=== PATIENT | female | born 1985 | race Caucasian/White ===

== ENCOUNTER 2018-11-18 09:34 | Inpatient (IN) ==
[2018-11-18] MEDS ORDERED: Ringers Solution, Lactated 1,000 ML IVC ONE (10:03)
[2018-11-18] MEDS ORDERED: Famotidine 20 MG/2 ML VIAL IVP ONE (10:03)
[2018-11-18] MEDS ORDERED: Oxytocin 20 units/ LR 1000 mL 20 UNIT/1,000 ML BAG IVC ONE (10:03)
[2018-11-18] MEDS ORDERED: Metoclopramide 10 MG/2 ML VIAL IVP ONE (10:03)
[2018-11-18] MEDS ORDERED: Ringers Solution, Lactated 1,000 ML IVC SCH (10:15)
[2018-11-18] MEDS ORDERED: Oxytocin 20 units/ LR 1000 mL 20 UNIT/1,000 ML BAG IVC SCH ×3 (10:15→18:23)
[2018-11-18 10:46] LABS: Basophils % 0.3 %; Eosinophils % 0.2 %; Hematocrit 42.2 % (35.3-44.9); Hemoglobin 14.5 g/dL (11.5-15.4); Immature Granulocytes % 0.5 % (0-4); Lymphocytes # 1.1 K/mcL (0.6-4.6); Lymphocytes % 16.5 %; Mean Corpuscular HGB Conc 34.4 g/dL (31.6-35.5); Mean Corpuscular Hemoglobin 30.2 pg (28.0-33.3); Mean Corpuscular Volume 87.9 fL (83.0-100.0); Mean Platelet Volume 10.8 fL (9.4-12.4); Monocytes # 0.4 K/mcL (0.0-1.3); Monocytes % 6.5 %; Platelet Count 224 K/mcL (140-400); Red Cell Distribution Width 13.2 % (11.5-14.5)
[2018-11-18 11:00] LABS: Amphetamine Screen,Urine Negative ng/mL (Cutoff=1000); Barbiturate Screen,Urine Negative ng/mL (Cutoff=200); Benzodiazepines Screen,Urine Negative ng/mL (Cutoff=200); Cannabinoid Screen,Urine Negative ng/mL (Cutoff = 50); Cocaine Screen,Urine Negative ng/mL (Cutoff= 300); Opiate Screen,Urine Negative ng/mL (Cutoff=300); Phencyclidine Screen,Urine Negative ng/mL (Cutoff=25)
[2018-11-18] MEDS ORDERED: cefOXitin 2,000 MG in Water for inj. (sterile) 20 ML 20 ML IVP ONE (11:16)
--- NOTE | 2018-11-18 12:01 | Anesthesia Evaluation PreOp ---
Date of Encounter: 11/18/18 Time of Encounter: 11:59 - Past History Planned Operation: Repeat C/S & BPS Cardiac History: Denies any Significant Hx Pulmonary History: Denies Any Significant HX INSPECTOR TESTER SORTER History: Denies Any Significant HX Anesthesia History: No Prior Anesthetic Complications, Past Anesthesia (C- section x 2, D&C) : Yes (39.2 weeks) Alcohol Use: none Drug use: none Medications and Allergies Tablet 11/18/18 [History] Allergy/AdvReac Type Severity Reaction Status Date / Time No Known Allergies Allergy Verified 03/15/16 13:24 - Meds/Allergy Pre-op Review Medications Reviewed: Yes Allergies Reviewed: Yes Beta Blockers on Current Med List: No Anesthesia Results - Labs 11/18/18 10:20 Anesthesia Exam Intake and Output 11/17/18 11/18/18 11/18/18 23:59 07:59 15:59 Other: Weight 70.5 kg Patient Weight 11/18/18 23:59 Weight 70.5 kg Vital Signs Time 1214 BP 125/83 Pulse 75 Resp 16 O2 Sat Height: 5'4" Weight: 155# BMI = 70.5kG NPO (# of Hours): MNOc - HEENT Pupil (Motor): Pupils equal, EOMI Mallampati: II Teeth: Normal, Poor dentition Oral Opening: Greater than 3 - INSPECTOR TESTER SORTER LOC: Oriented INSPECTOR TESTER SORTER Motor: Normal RUE, Normal LUE, Normal RLE, Normal LLE, Normal Face INSPECTOR TESTER SORTER Sensory: Normal: RUE, LUE, RLE, LLE, Face - Cardiac Rhythm: Regular Murmur: None - Pulmonary Breath Sounds: bilateral Clear Respiratory Effort: Symmetrical Anesthesia Assess/Plan ASA Score: 2 Level of consciousness: Cooperative, Oriented, Tranquil Anesthetic Plan: Regional Nerve Block Monitoring Plan: Standard Monitors Recovery Plan: PACU Anes Supervising Prov Stmt: Pt seen/evaluated, R&B discussed, questions answered and consent obtained. Leela Rodriguez MD
[2018-11-18] MEDS ORDERED: Scopolamine Patch 1.5 MG PATCH.TD72 TD ONE (12:04)
[2018-11-18] MEDS ORDERED: Ondansetron 4 MG/2 ML VIAL IVP PRN ×2 (12:06→18:23)
[2018-11-18] MEDS ORDERED: Naloxone 0.4 MG/ML INJ IVP PRN (12:06)
[2018-11-18] MEDS ORDERED: *HR* Morphine 2 MG/ML SYRINGE IVP PRN (12:06)
[2018-11-18] MEDS ORDERED: *HR* OxyCODONE/APAP 5/325 TABLET PO PRN ×2 (12:06→18:23)
[2018-11-18] MEDS ORDERED: *HR* HYDROmorphone (PF) 1 MG/ML SYRINGE IVP PRN (12:06)
[2018-11-18] MEDS ORDERED: Ibuprofen 400 MG TABLET PO PRN (12:06)
--- NOTE | 2018-11-18 12:07 | History & Physical Report ---
Date of Encounter: 11/18/18 Time of Encounter: 12:05 24 Hour HP Update - Instructions Instructions: If the History and Physical is less than 30 days old and was completed prior to A.M. admission and or procedure and has NOT been updated on calendar day of procedure please complete this update prior to performing procedure. - Update Patient reports changes in Medical Condition: No Changes in examination, assessment, or condition: No Changes in Medication: No Preop tests/diagnostics Reviewed: Yes Surgery Remains Indicated: Yes Consent for Planned Operative Procedure(s) Verified: Yes - Pre-Operative Checklist Preoperative Checklist Indicated: Yes Prophylactic Antibiotic Ordered: Yes Home Medications Include Beta Lucila: No Beta Lucila Taken Today (Day of Surgery): No Beta Lucila Taken Yesterday (Day Prior to Surgery): No Is VTE Prophylaxis Indicated?: Yes
[2018-11-18] MEDS ORDERED: Acetaminophen IV 1,000 MG/100 ML INFUS..BTL IVPB ONE (12:12)
[2018-11-18] MEDS ORDERED: *HR* Morphine Sulfate/PF 10 MG/10 ML AMPUL ONE (12:40)
[2018-11-18] MEDS ORDERED: *HR* FentaNYL (PF) 100 MCG/2 ML VIAL ONE (12:41)
[2018-11-18] MEDS ORDERED: EPHEDrine 50 MG/ML VIAL ONE (12:41)
[2018-11-18] MEDS ORDERED: *HR* Oxytocin 10 UNIT/ML VIAL IM ONE (12:43)
[2018-11-18] MEDS ORDERED: Water for inj. (sterile) 10 ML IV ONE (12:43)
--- NOTE | 2018-11-18 17:01 | OB/GYN Procedure Note ---
Section - Date of procedure: 11/18/18 Preop diagnosis: desires repeat , desires sterilization, breech (Double footling), other (Complex cyst left ovary, 2 vessel cord) Post-op diagnosis: same Procedure: section, repeat low transverse, bilateral tubal ligation, other (Left ovarian cystectomy) Surgeon: Kelle Davidson Blood Loss: 800 Was there an carpenter assistant present: No Anesthesiologist: Aisha Pearce Technical Manager Chemical [employer]: Lynne Rosales Anesthesia Type: Spinal section complications: none Disposition: L&D Recovery Room Specimens: Placenta, Cord segment, Right tube segment, Left tube segment - Infant (s) Infant A Infant Delivery Date: 11/18/18 Infant Delivery Time: 14:52 Presentation: footling breech Route of delivery: other ( section) Gender: Female Viability: Viable Pounds: 6 Ounces: 10 Gram Weight: 3.005 kg at 1 minute: 7 at 5 minutes: 9 Shoulder Dystocia: not encountered Placenta: spontaneous, uterine exploration Cord: nuchal cord (x2), 2 umbilical vessels, nuchal reduced - Narrative Narrative: The patient was brought to the operating room, sign in completed, given spinal anesthesia then prepped and draped in the usual sterile fashion. A timeout was completed. A Pfannenstiel skin incision was then made above and below the existing scar. The scar was then excised and sent to pathology due to a p igmented lesion being present within it. The subcutaneous tissue was sharply dissected down to the fascia. The fascia was then incised in the midline and extended bluntly and sharply bilaterally. 2 straight [place] clamps are placed on the inferior fascial edge and the fascia was bluntly and sharply dissected from rectus muscles, this was repeated superiorly. The rectus muscles were bluntly and sharply bissected. Peritoneum was bluntly entered and extended sharply and bluntly superiorly and inferiorly. A bladder blade was placed to protect the bladder. The Vesicouterine peritoneum was incised with Metzenbaum scissors and extended laterally, then the bladder flap was reflected inferiorly and the bladder blade was replaced to protect the bladder. A low transverse incision was then made in the lower uterine segment down to the amnion. This was then bluntly extended laterally then upward in a U fashion with bandage scissors bilaterally. The amnion was then bluntly entered, clear fluid was seen, and the infant was delivered in footling breech presentation. The infant was suctioned on the operating field. After a short delay of cord clamping, the was handed to the nursery care team. A cord segment was obtained. IV Pitocin was started. The placenta was delivered spontaneous and intact. The uterine cavity was digitally inspected and noted to be clear and then was wiped clean with a moist lap sponge. Tubes and ovaries were inspected and found to be grossly normal with the exception of a multiloculated thick dark fluid containing cystic structure on the posterior wall of the left ovary that was also adherent to the posterior wall uterus with thin fibrous adhesions. A ring clamp was used to dilate the cervix and then discarded off the operating field. Ring clamps were placed on the edge of the uterine incision and the uterine incision was closed using 0 Vicryl suture in a running locking fashion. A second imbricating layer completed the uterine closure. Good hemostasis was achieved. The pelvic cavity was copiously irrigated with sterile water and good hemostasis was again noted. Peritoneal edges and rectus muscles were inspected and good hemostasis was achieved. The left ovary was then addressed. The adhesions were lysed both sharply and with the Bovie to free up the ovary posteriorly. The loculated cystic structures were dissected away from the normal ovarian tissue with Adson's and Metzenbaum scissors. The cystic structure was then excised from the healthy-appearing ovarian tissue with Brandy clamps in interrupted [place] suture fashion with 3-0 Vicryl along the full length of the cyst which was approximately 4 cm. This area then was observed during the tubal ligation. The left fallopian tube was grasped with a [place] clamp and elevated. The fimbriated ends were confirmed. A double ligation with O-plain suture was then performed. The loop of tube was excised and sent to pathology for confirmation. The tubal lumens were identified and found to be hemostatic. This was repeated for the patient's right side. Following this the left ovarian cystectomy site was readdressed. It appeared hemostatic. Lila was then applied to this back area due to hypervascular situation for extra caution and hemostasis. The fascia was then closed using an 0 PDS loop in a running nonlocking fashion. Subcutaneous tissue was irrigated with sterile water good hemostasis was achieved. The subcutaneous layer was closed with 0-stratafix in a running nonlocking fashion. The skin was then closed with 4-0 Monoicryl in a subcuticular fashion. A Dermabond dressing was applied to reinforce the skin incision. Avendaño was noted to be draining clear yellow urine at the end of the procedure. All sponge and instrument counts were correct at the end of the procedure. Both mother and infant were sent to the labor and delivery recovery room in stable condition.
--- NOTE | 2018-11-18 17:07 | Anesthesia Evaluation Post Op ---
Date of Encounter: 11/18/18 Time of Encounter: 17:03 - Vital Signs Vital Signs: VSS throughout PACU stay. - Lungs Lungs: Clear Ascult./Percussion - Airway Airway: Non-obstructed - Cardiovascular Regular Rate - Mental Status Mental Status: Alert & Oriented, Answers Appropriately - Pain Pain Scale: 0 Pain Scale used: Numeric (1 - 10) - Nausea Vomiting Nausea Vomiting: Not Present - Hydration Hydration: NPO, Avendaño catheter - Discharge PostOp Status: Transfer Patient to floor
[2018-11-18] MEDS ORDERED: Simethicone 80 MG TAB.CHEW PO PRN (18:23)
[2018-11-18] MEDS ORDERED: Sennosides 8.6 MG TABLET PO PRN (18:23)
[2018-11-18] MEDS ORDERED: Metoclopramide 10 MG/2 ML VIAL IVP PRN (18:23)
[2018-11-19 04:55] LABS: Basophils % 0.1 %; Eosinophils % 0.1 %; Hematocrit 36.1 % (35.3-44.9); Immature Granulocytes % 0.2 % (0-4); Lymphocytes # 0.7 K/mcL (0.6-4.6); Lymphocytes % 8.3 %; Mean Corpuscular HGB Conc 34.1 g/dL (31.6-35.5); Mean Corpuscular Hemoglobin 30.4 pg (28.0-33.3); Mean Corpuscular Volume 89.1 fL (83.0-100.0); Mean Platelet Volume 10.4 fL (9.4-12.4); Monocytes # 0.6 K/mcL (0.0-1.3); Monocytes % 6.9 %; Platelet Count 180 K/mcL (140-400); Red Blood Count 4.05 M/mcL (3.82-4.97); Red Cell Distribution Width 13.3 % (11.5-14.5); Segmented Neutrophils % 84.4 %
[2018-11-19 04:58] LABS: Hemoglobin 12.3 g/dL (11.5-15.4)
[2018-11-19] MEDS: Ibuprofen 600 MG TABLET PO PRN ×3 (08:57→20:22)
[2018-11-19] MEDS ORDERED: Prenatal Vit/FA 1 EACH TABLET PO SCH (09:00)
--- NOTE | 2018-11-19 09:37 | OB/GYN Progress Note ---
Date of Encounter: 11/19/18 Time of Encounter: 09:35 - Assessment and Plan (1) delivery delivered Current Visit: Yes Status: Acute Stable POD#1 Continue current management Anticipate discharge tomorrow Subjective - Subjective Interval history: Stable, pain well managed, up in chair, no void since hinton removal, no flatus yet. tolerates diet. bleeding minimal Patient reports: appetite normal, pain well controlled, ambulating normally, no voiding normally : doing well Objective - Vital Signs Latest vital signs: Vital Signs Temp Pulse Resp BP Pulse Ox 11/19/18 00:30 97.9 F 76 18 101/66 97 11/18/18 21:30 98.0 F 77 14 112/73 97 11/18/18 20:35 98.3 F 74 18 109/73 96 11/18/18 19:30 97.7 F 75 16 114/74 97 11/18/18 19:11 68 16 112/60 96 11/18/18 18:00 97.7 F 70 16 108/70 97 Intake and Output 11/18/18 11/19/18 11/19/18 23:59 07:59 15:59 Output Total 250 / 250 400 / 400 Balance -250 / -250 -400 / -400 Output: Catheter 250 / 250 400 / 400 Urethral (Hinton) 400 / 400 - Exam Lungs: bilateral: normal Chest: Normal S1, Normal S2 Extremities: Present: normal Abdomen: Present: normal appearance, soft Incision: Present: intact (dermabond dressing ) Uterus: Present: firm (U) - Labs Labs: Laboratory Results - last 24 hr 11/18/18 11/18/18 11/19/18 10:20 10:20 04:43 WBC 6.6 8.3 RBC 4.80 4.05 Hgb 14.5 12.3 D Hct 42.2 36.1 MCV 87.9 89.1 MCH 30.2 30.4 MCHC 34.4 34.1 RDW 13.2 13.3 Plt Count 224 180 MPV 10.8 10.4 Immature Gran % 0.5 0.2 Seg Neutrophils % 76.0 84.4 Lymphocytes % 16.5 8.3 Monocytes % 6.5 6.9 Eosinophils % 0.2 0.1 Basophils % 0.3 0.1 Neutrophils # 5.0 7.0 Lymphocytes # 1.1 0.7 Monocytes # 0.4 0.6 Eosinophils # 0.0 0.0 Basophils # 0.0 0.0 Urine Opiates Screen Negative Ur Barbiturates Screen Negative Ur Phencyclidine Scrn Negative Ur Amphetamines Screen Negative U Benzodiazepines Scrn Negative Urine Cocaine Screen Negative U Marijuana (THC) Screen Negative Ur Drug Screen Interp See Below
[2018-11-20] MEDS: Ibuprofen 600 MG TABLET PO PRN (09:00)
[2018-11-20 09:39] VITALS: BP 126/85
--- NOTE | 2018-11-20 10:48 | Discharge Summary ---
Date of Encounter: 11/20/18 Time of Encounter: 10:45 - Discharge Diagnosis (1) Patient is a currently breast-feeding mother Priority: Secondary Status: Acute (2) Tubal ligation status Priority: Secondary Status: Acute (3) delivery delivered Priority: Primary Status: Acute Comments: Pt meeting all post-op milestones. Pain well controlled. No complaints this am. She is requesting discharge home. - Discharge Medications Prescriptions: New Docusate [Colace] 100 mg PO BID #60 capsule Simethicone [Gas-X] 80 mg PO TID PRN tab.chew PRN Reason: Dyspepsia Ibuprofen [Motrin] 600 mg PO Q6HR PRN #60 tablet PRN Reason: Cramping OxyCODONE/APAP 5/325 [Percocet 5/325 MG] 1 each PO Q6HR PRN 7 Days #28 tablet PRN Reason: Moderate pain 4-6 Continued Tablet Home Medications: Tablet 11/18/18 [History] Breast Pump [BREAST PUMP] 1 each .ROUTE AD #1 each 11/20/18 [Rx] Docusate [Colace] 100 mg PO BID #60 capsule 11/20/18 [Rx] Ibuprofen [Motrin] 600 mg PO Q6HR PRN #60 tablet 11/20/18 [Rx] OxyCODONE/APAP 5/325 [Percocet 5/325 MG] 1 each PO Q6HR PRN 7 Days #28 tablet 11/20/18 [Rx] Simethicone [Gas-X] 80 mg PO TID PRN tab.chew 11/20/18 [Rx] Allergies/Adverse Reactions: Allergy/AdvReac Type Severity Reaction Status Date / Time No Known Allergies Allergy Verified 03/15/16 13:24 Data Procedures and tests throughout hospitalization: Laboratory Tests 11/18/18 11/18/18 11/19/18 10:20 10:20 04:43 WBC 6.6 8.3 RBC 4.80 4.05 Hgb 14.5 12.3 D Hct 42.2 36.1 MCV 87.9 89.1 MCH 30.2 30.4 MCHC 34.4 34.1 RDW 13.2 13.3 Plt Count 224 180 MPV 10.8 10.4 Immature Gran % 0.5 0.2 Seg Neutrophils % 76.0 84.4 Lymphocytes % 16.5 8.3 Monocytes % 6.5 6.9 Eosinophils % 0.2 0.1 Basophils % 0.3 0.1 Neutrophils # 5.0 7.0 Lymphocytes # 1.1 0.7 Monocytes # 0.4 0.6 Eosinophils # 0.0 0.0 Basophils # 0.0 0.0 Urine Opiates Screen Negative Ur Barbiturates Screen Negative Ur Phencyclidine Scrn Negative Ur Amphetamines Screen Negative U Benzodiazepines Scrn Negative Urine Cocaine Screen Negative U Marijuana (THC) Screen Negative Ur Drug Screen Interp See Below Date of admission: 11/18/18 09:34 Primary care physician: PCP NONE Discharging clinician: Lubna Cardoso Anticipated date of discharge: 11/20/18 - Patient Status Disposition: Home, Self-Care Condition: Good Functional capacity at discharge: independent ambulation Overall status at discharge: patient is progressing back to baseline - Discharge Instructions Follow Up With: NONE,PCP [Primary Care Provider] - Kelle Rogers MD [Partnered Physician] - - Diet and Activity Activity: increase activity as tolerated Diet: regular diet Hospital Course Reason for admission: section Delivery: section Episiotomy: none Laceration: none Other procedures: tubal ligation complications: none Discharge diagnosis: IUP at term delivered baby: female Hospital course: - Date of procedure: 11/18/18 Preop diagnosis: desires repeat , desires sterilization, breech (Double footling), other (Complex cyst left ovary, 2 vessel cord) Post-op diagnosis: same Procedure: section, repeat low transverse, bilateral tubal ligation, other (Left ovarian cystectomy) Surgeon: Kelle Rogers Quantitated Blood Loss: 800 Was there an offset press assistant present: No Anesthesiologist: Aisha Pearce Lands Resource Manager: Lynne Rosales Anesthesia Type: Spinal section complications: none Disposition: L&D Recovery Room Specimens: Placenta, Cord segment, Right tube segment, Left tube segment - Infant (s) Infant A Infant Delivery Date: 11/18/18 Delivery Time: 14:52 Presentation: footling breech Route of delivery: other ( section) Gender: Female Viability: Viable Pounds: 6 Ounces: 10 Gram Weight: 3.005 kg at 1 minute: 7 at 5 minutes: 9 Shoulder Dystocia: not encountered Placenta: spontaneous, uterine exploration Cord: nuchal cord (x2), 2 umbilical vessels, nuchal reduced Time Attestation: Total time spent providing and/or coordinating discharge services: Time Spent: Less than 30 minutes - VTE Documentation of Mechanical Device: Intermittent pneumatic compression device Exam - Constitutional Vitals: Temp Pulse Resp BP Pulse Ox 98.6 F 90 12 126/85 99 11/20/18 08:20 11/20/18 08:20 11/20/18 08:20 11/20/18 08:20 11/20/18 08:20 General appearance IM: A&O X 3 - Respiratory Respiratory exam: Present: CTAB - Cardiovascular Cardiovascular exam IM: Present: RRR - GI/Abdominal GI/Abdominal exam IM: soft, no peritoneal signs Incision: intact (small amount old drainage noted, ) - Uterine Tone: Firm Uterus Position: 1 Finger Below Umbilicus - Extremities Exam Extremities exam IM: Present: normal inspection - Neurological Exam Neurological exam: normal gait, oriented X3 - Psychiatric Additional comments: reports good mood
== END 2018-11-20 13:00 | disposition home or self-care (01) | DRG 785 ==
LOC: 1NENULAB 09:34 → 1NENUOBS 18:56
PROVIDERS: ADMIT Obstetrics & Gynecology; ATTEND Obstetrics & Gynecology